=== PATIENT | female | born 1990 | race Caucasian/White ===

== ENCOUNTER → 2017-07-17 19:10 | Outpatient (CLI) | payer OTHER, SELFPAY ==
[2017-07-26 08:50] LABS: HPV APTIMA, High Risk Positive (Negative)
[2017-07-26 09:01] LABS: HPV Reflexed? YES, CHARGE PATIENT
== END ==
PROVIDERS: Visit Provider Obstetrics & Gynecology
DX: Z12.4 Encounter for screening for malignant neoplasm of cervix (principal)
CPT/HCPCS: 87624; 88175; G0145

== ENCOUNTER → 2017-08-14 11:16 | Outpatient (CLI) | payer OTHER, SELFPAY ==
--- NOTE | 2017-08-14 | IMM_PTH ---
PATIENT: KISHOR IVAN LOC: [facility] U#:[id number] AGE/SX: 34/F ROOM: RE08/14/[address]: Dr. Luci Colon MD : 1990 BED: DIS: SPEC #: [id number] RECD: 08/17/17 11:50 STATUS: CAROLINE XIOMY #: [id number] MICHAEL: 08/14/17 00:[address]: Luci Galindo DEPT: IMMUNOHISTOCHEMISTRY RECD BY: Emily Patel Tissues: Uterine cervix, NOS Procedures: p16 (initial) KI-67 (add) PHYSICIAN & INSTITUTION [place] [id number] SPECIMEN INFORMATION: Tissue Source: Cervical biopsy at 6 o?clock Clinical Info: ASCUS, positive HR/HPV, pap 07/17/17, LMP 05/30/17 Specimen Number: [id number] CPT code: 40490, 24052 METHODOLOGY: Deparaffinized sections of prefer/formalin-fixed tissue or PAP/DQ stained slides are incubated with monoclonal/polyclonal antibodies/oligonucleotide probes. Localization is made via biotin free immunoperoxidase method. Appropriate controls are performed and reacted as expected. Results on target cell population are indicated in the following table: RESULTS: ANTIBODY / CLONE RESULT P16 (E6H4) negative Ki-67 (30-9) negative These tests were developed and their performance characteristics determined by [facility]. They may not have been cleared or approved by the U.S. Food and Drug Administration. The FDA has determined that such clearance or approval is not necessary. INTERPRETATION: Cervix at 6 o?clock, biopsy: Focal changes suspicious for HPV cytopathic effects. SJ:harsh 08/18/17
--- NOTE | 2017-08-14 | CER_PTH ---
PATIENT: KISHOR IVAN [id number] AGE/SX: 34/F ROOM: RE08/14/[address]: Dr. Luci Colon MD : 1990 BED: DIS: SPEC #: [id number] RECD: 08/14/17 11:35 STATUS: CAROLINE XIOMY #: [id number] MICHAEL: 08/14/17 00:[address]: Luci Galindo DEPT: SURGICAL PATHOLOGY RECD BY: Alli Tyson Tissues: A - Uterine cervix, NOS B - Endocervical Procedures: Surgery Specimen Level IV HEADER OPERATION: Colposcopy PRE-OP DIAGNOSIS: ASCUS, positive HR/HPV, pap 07/17/17, LMP 05/30/17 TISSUE SUBMITTED: A ? Cervical biopsy 6 o?clock, B - ECC MICROSCOPIC DIAGNOSIS A. Cervix, 6 o?clock, biopsy: Focal changes suspicious for HPV cytopathic effects. Focal chronic inflammation. See comment. B. ECC: Rare minute fragment of benign ectocervical epithelium and mucous, insufficient for further evaluation. JANNETTE:harsh 08/17/17 COMMENT A. Immunohistochemistry ([id number]) for surrogate HPV marker (p16) is also being performed and results will be reported separately.. Please make reference to previous specimen ([id number]) cervix, 1 o?clock, biopsy with diagnosis of focal changes consistent with HPV cytopathic effects. MICROSCOPIC DESCRIPTION Slides are reviewed. GROSS DESCRIPTION A - Received in fixative is one container labeled with the patient's name and designated cervical biopsy 6 o'clock. The specimen consists of one irregular fragment of light vaughan soft tissue that measures 0.4 x 0.4 x 0.1 cm. The specimen is totally submitted in one cassette. B - Received in fixative is one container labeled with the patient's name and designated ECC. No obvious tissue is identified. The specimen is filtered and submitted in one cassette. / JANNETTE:harsh 08/14/17 TC:5 CPT: 68127 x2
== END ==
PROVIDERS: Visit Provider Obstetrics & Gynecology
DX: R87.610 Atypical squamous cells of undetermined significance on cytologic smear of cervix (ASC-US) (principal); R87.810 Cervical high risk human papillomavirus (HPV) DNA test positive
CPT/HCPCS: 88305; 88341; 88342

== ENCOUNTER → 2018-08-24 13:27 | Outpatient (CLI) | payer OTHER, SELFPAY ==
[2018-08-30 11:19] LABS: HPV APTIMA, High Risk Negative (Negative); HPV Reflexed? NOT INDICATED
== END ==
PROVIDERS: Visit Provider Obstetrics & Gynecology
DX: Z12.4 Encounter for screening for malignant neoplasm of cervix (principal)
CPT/HCPCS: 87624; 88175; G0145

== ENCOUNTER → 2018-09-06 | Outpatient (CLI) | payer OTHER, SELFPAY ==
[2017-05-30 13:06] VITALS: BMI 32.3
--- NOTE | 2018-09-06 08:45 | CER_PTH ---
PATIENT: KISHOR IVAN [id number] AGE/SX: 28/F ROOM: RE09/06/[address]: Dr. Luci Colon MD : 1990 BED: DIS: 09/06/2018 SPEC #: [id number] RECD: 09/06/18 10:47 STATUS: CAROLINE XIOMY #: [id number] MICHAEL: 09/06/18 08:[address]: Luci Galindo DEPT: SURGICAL PATHOLOGY RECD BY: Juwan Robert Tissues: A - Uterine cervix, NOS B - Endocervical Procedures: Surgery Specimen Level IV HEADER OPERATION: Colposcopy PRE-OP DIAGNOSIS: ASCUS, positive HPV, LMP 08/06/18, pap 08/24/18 TISSUE SUBMITTED: A - Cervical biopsy 6 o'clock, B - ECC MICROSCOPIC DIAGNOSIS A. Cervix, 6 o'clock, biopsy: Moderate chronic inflammation and focal mild acute inflammation. Negative for dysplasia. See comment. B. ECC: Fragments of benign endocervical epithelium, blood and mucous, negative for dysplasia. Scant fragment of benign endometrial tissue, consistent with lower uterine segment endometrial tissue. SJ:rg 09/07/18 COMMENT A. Transitional zone mucosa is present in the submitted specimen. Please make reference to previous specimen ([id number]) cervix, 1 o'clock, biopsy with diagnosis of focal changes consistent with HPV cytopathic effects and ([id number]) cervix, 6 o'clock, biopsy with diagnosis of focal changes suspicious for HPV cytopathic effects. MICROSCOPIC DESCRIPTION Slides are reviewed. GROSS DESCRIPTION A - Received in fixative is one container labeled with the patient's name and designated cervical biopsy 6 o'clock. The specimen consists of multiple irregular fragments of light vaughan soft tissue that in aggregate measure 0.5 x 0.5 x 0.1 cm. The specimen is totally submitted in one cassette. B - Received in fixative is one container labeled with the patient's name and designated ECC. The specimen consists of multiple fragments of hemorrhagic mucoid tissue that in aggregate measure 1 x 1 x 0.1 cm. The specimen is totally submitted in one cassette. / JANNETTE:harsh 09/06/18 TC:3 CPT: 96330 x2
== END | disposition home or self-care (01) ==
LOC: LABSPEC 10:56
PROVIDERS: Referring Provider Obstetrics & Gynecology; Visit Provider Obstetrics & Gynecology
DX: R87.610 Atypical squamous cells of undetermined significance on cytologic smear of cervix (ASC-US) (principal)
CPT/HCPCS: 88305

== ENCOUNTER → 2018-11-02 10:13 | Outpatient (CLI) | payer OTHER, SELFPAY ==
[2018-11-02 12:34] LABS: Chlamydia Trachomatis by PCR Negative (Negative); Neisserai gonorrhoeae by PCR Negative (Negative); Probe Check PASS; Sample Adequacy Control PASS; Specimen Processing Control PASS
== END ==
PROVIDERS: Visit Provider Obstetrics & Gynecology
DX: Z32.01 Encounter for pregnancy test, result positive (principal); Z11.3 Encounter for screening for infections with a predominantly sexual mode of transmission
CPT/HCPCS: 87491; 87591

== ENCOUNTER → 2018-11-16 | Outpatient (CLI) | payer OTHER, SELFPAY ==
[2018-11-16 11:12] LABS: Absolute Lymphocyte Count 1.51 X10^3/ul (0.83-4.51); Absolute Neutrophil Count 4.1 X10^3/uL (2.0-7.7); Basophil# 0.01 X10^3/uL; Basophil% 0.2 % (0-1); Color, Urine Yellow (Yellow); Eosinophil# 0.04 X10^3/uL; Eosinophils% 0.7 % (0-5); Glucose, Dipstick Normal (Normal); Hematocrit 37.5 % (37-47); Hemoglobin 12.8 g/dl (12.0-15.0); Ketone-Dipstick Negative (Negative); Leukocyte Esterase-Dipstick Negative /ul (Negative); Lymphocyte # 1.51 X10^3/ul (4.0); Lymphocyte % 24.9 % (19-41); Mean Corp Hgb Conc 34.1 g/gl (32-36); Mean Corpuscular Hgb 28.4 pg (27.0-32.0); Mean Corpuscular Volume 83.3 fL (81-99); Mean Platelet Vol. 10.3 fl (6.2-12.0); Monocyte# 0.43 X10^3/uL; Monocyte% 7.1 % (0-10); Neutrophil # 4.06 X10^3/uL (2.7-7.7); Neutrophil % 66.9 % (47-70); Nitrite-Dipstick Negative (Negative); Occult Blood-Urine 10 /ul (Negative); Platelet Count 281 K/mm3 (150-450); Protein-Dipstick 15 mg/dl (Negative); RBC Distribution Width CV 13.1 % (11.6-14.6); RBC Distribution Width SD 39.6 fl (35.1-43.9); Specific Gravity, Urine 1.025 (1.002-1.030); Urine Bilirubin Dipstick Negative (Negative); Urine Clarity Clear (Clear); Urine Urobilinogen 1 mg/dl (Normal); White Blood Count 6.1 K/mm3 (4.4-11.0)
[2018-11-16 11:13] LABS: POSITIVE COUNT NO; POSITIVE DIFFERENTIAL NO; POSITIVE MORPHOLOGY NO
[2018-11-16 11:25] LABS: Amphetamine Urine VISTA NEGATIVE (<1000 ng/mL); Barbiturate Urine VISTA NEGATIVE (< 200 ng/mL); Benzodiazepine Urine VISTA NEGATIVE (< 200 ng/mL); Cocaine Urine VISTA NEGATIVE (< 300 ng/mL); Ecstacy Urine VISTA NEGATIVE (< 500 ng/mL); Methadone Urine VISTA NEGATIVE (< 300 ng/mL); PCP Urine VISTA NEGATIVE (< 25 ng/mL); THC Urine VISTA NEGATIVE (< 50 ng/mL); Vista UDS pH Range 5
[2018-11-16 11:31] LABS: Thyroid Stim Hormone (TSH) 0.77 uIU/mL (0.358-3.74)
[2018-11-16 12:09] LABS: HIV - WCH Non-Reactive (Nonreactive); Rubella IgG 86.2 IU/mL
[2018-11-17 11:19] LABS: HEPATITIS B SURFACE AG Negative (Negative); Hep C Antibodies <0.1 s/co ratio (0.0-0.9)
[2018-11-19 02:31] LABS: Prenatal RPR NONREACTIVE (NONREACTIVE)
== END | disposition home or self-care (01) ==
LOC: WOBLAB 09:04
PROVIDERS: Visit Provider Obstetrics & Gynecology
DX: Z34.83 Encounter for supervision of other normal pregnancy, third trimester (principal)
CPT/HCPCS: 36415; 80307; 81002; 84443; 85025; 86703; 86762; 86803; 87340

== ENCOUNTER → 2019-03-28 09:09 | Outpatient (CLI) | payer OTHER, SELFPAY ==
[2019-03-28 11:07] LABS: Hematocrit 32.9 % (37-47); Mean Corp Hgb Conc 33.4 g/dL (32-36); Mean Corpuscular Hgb 29.1 pg (27.0-32.0); Mean Platelet Vol. 10.2 fl (6.2-12.0); Platelet Count 259 K/mm3 (150-450); RBC Distribution Width SD 41.1 fl (35.1-43.9); Red Blood Count 3.78 M/mm3 (4.2-5.4); White Blood Count 5.4 K/mm3 (4.4-11.0)
[2019-03-28 11:11] LABS: Glucose Challenge Gest 1H 50g 108 mg/dL (70-140)
== END ==
PROVIDERS: Visit Provider Obstetrics & Gynecology
DX: Z34.83 Encounter for supervision of other normal pregnancy, third trimester (principal)
CPT/HCPCS: 36415; 82950; 85027

== ENCOUNTER → 2019-05-27 14:01 | Outpatient (CLI) | payer OTHER, SELFPAY | PROVIDERS: Visit Provider Obstetrics & Gynecology | DX: Z36.85 Encounter for antenatal screening for Streptococcus B (principal) | CPT/HCPCS: 87081 ==

== ENCOUNTER 2019-06-04 18:00 | Outpatient (CLI) | payer OTHER, SELFPAY ==
[2017-05-30 13:06] VITALS: BMI 32.3
[2019-06-04 18:18] VITALS: BMI 30.9
[2019-06-04] MEDS: Ondansetron 8 MG Tablet 4 MG PO (19:40)
[2019-06-04 19:48] LABS: Color, Urine Yellow (Yellow); Glucose, Dipstick Normal (Normal); Leukocyte Esterase-Dipstick Negative /ul (Negative); Nitrite-Dipstick Negative (Negative); Occult Blood-Urine Negative /ul (Negative); Protein-Dipstick Negative (Negative); Specific Gravity, Urine 1.015 (1.002-1.030); Urine Bilirubin Dipstick Negative (Negative); Urine Clarity Clear (Clear); Urine Urobilinogen Normal (Normal)
[2019-06-04 19:51] LABS: Ketone-Dipstick 150 mg/dl (Negative)
[2019-06-04] MEDS: 0.9% Saline Lock 10 ML Syringe IV ×4 (21:50→22:47)
--- NOTE | 2019-06-04 21:51 | OB.TRI.HP_ITS ---
- Problem List (1) 38 weeks gestation of Status: Acute History of Present Illness Date of Service: 06/04/19 Was patient seen by the physician?: Yes Reason For Visit: R/O LABOR Final HOWARD: 06/18/19 Final HOWARD Source: US <20 weeks Gestational age: 38 Weeks and 0 Days History of Present Illness: 28yo @ 38wga with c/o contractions since 1400h. Allergies No Known Allergies Allergy (Verified 06/04/19 18:19) Laboratory Studies: Laboratory Tests 06/04/19 Range/Units 19:20 Urine Color Yellow (Yellow) Urine Clarity Clear (Clear) Urine pH 7.0 (5.0 - 8.0) Ur Specific [place] 1.015 (1.002-1.030) Urine Protein Negative (Negative) mg/dl Urine Glucose (UA) Normal (Normal) mg/dl Urine Ketones 150 H (Negative) mg/dl Urine Occult Blood Negative (Negative) /ul Urine Nitrite Negative (Negative) Urine Bilirubin Negative (Negative) mg/dL Urine Urobilinogen Normal (Normal) mg/dl Ur Leukocyte Esterase Negative (Negative) /ul Physical Exam General: Alert, Oriented x3, Cooperative Abdomen: Non Tender, Non-Distended, Gravid Extremities:: No edema NST - FHR Rate Baby A Baseline: 145 Variability:: Moderate Accelerations:: 15 x 15 Decelerations:: None NST Reactive:: Yes FHR Category:: Category I Uterine Activity:: 3/10 min Impression/Plan 28yo @ 38wga -SVE unchanged, hx precipitous labor -Will observe for therapeutic rest
[2019-06-04] MEDS: proMETHazine 25 MG/ML Syringe 12.5 MG IV (22:15)
[2019-06-04 22:17] LABS: Absolute Lymphocyte Count 1.12 X10^3/uL (0.83-4.51); Absolute Neutrophil Count 8.1 X10^3/uL (2.0-7.7); Basophil# 0.01 X10^3/uL; Basophil% 0.1 % (0-1); Eosinophil# 0.01 X10^3/uL; Eosinophils% 0.1 % (0-5); Hematocrit 33.8 % (37-47); Hemoglobin 11.5 g/dL (12.0-15.0); Lymphocyte # 1.12 X10^3/ul (4.0); Lymphocyte % 11.4 % (19-41); Mean Corpuscular Hgb 28.3 pg (27.0-32.0); Mean Platelet Vol. 10.2 fl (6.2-12.0); Monocyte# 0.57 X10^3/uL; Monocyte% 5.8 % (0-10); NRBC Flagged by Analyzer 0 % (0-5); Neutrophil # 8.08 X10^3/uL (2.7-7.7); Neutrophil % 82.2 % (47-70); Platelet Count 215 K/mm3 (150-450); RBC Distribution Width CV 13.8 % (11.6-14.6); RBC Distribution Width SD 41.8 fl (35.1-43.9); Red Blood Count 4.07 M/mm3 (4.2-5.4); White Blood Count 9.8 K/mm3 (4.4-11.0)
[2019-06-04] MEDS: Morphine 4 MG/ML Syringe IV (22:46)
[2019-06-04] MEDS: morphine 10 MG/ML Syringe IM (22:54)
--- NOTE | 2019-06-05 06:30 | PCM.PN.BLA ---
Progress Note Per nursing, pt reported she feels better and had a restful night. No longer feels most contractions. SVE unchanged. Will d/c home.
== END 2019-06-05 06:20 | disposition home or self-care (01) ==
LOC: WPOUT 18:05 → WP 18:06
PROVIDERS: Referring Provider Obstetrics & Gynecology; Visit Provider Obstetrics & Gynecology
DX: Z34.83 Encounter for supervision of other normal pregnancy, third trimester (principal); Z3A.38 38 weeks gestation of pregnancy
CPT/HCPCS: 36415; 59025; 59050; 81002; 85025; 86850; 86900; 86901; 94760; 96372; 99218; A4216; G0378

== ENCOUNTER 2019-06-18 02:35 | Inpatient (IN) | payer OTHER, SELFPAY ==
[2019-06-18] MEDS: Lactated Ringers 500 ML 999 ML IV ×2 (03:30→04:11)
[2019-06-18] MEDS: Lactated Ringers 1,000 ML 200 ML IV (03:30)
[2019-06-18 03:34] VITALS: BMI 31.0
[2019-06-18 03:48] LABS: Absolute Lymphocyte Count 1.42 X10^3/uL (0.83-4.51); Absolute Neutrophil Count 8.4 X10^3/uL (2.0-7.7); Basophil# 0.01 X10^3/uL; Basophil% 0.1 % (0-1); Eosinophil# 0.03 X10^3/uL; Eosinophils% 0.3 % (0-5); Hematocrit 35.2 % (37-47); Hemoglobin 11.8 g/dL (12.0-15.0); Lymphocyte # 1.42 X10^3/ul (4.0); Lymphocyte % 13.4 % (19-41); Mean Corp Hgb Conc 33.5 g/dL (32-36); Mean Corpuscular Hgb 28.2 pg (27.0-32.0); Mean Platelet Vol. 10.5 fl (6.2-12.0); Monocyte% 6.6 % (0-10); NRBC Flagged by Analyzer 0 % (0-5); Neutrophil # 8.36 X10^3/uL (2.7-7.7); Platelet Count 244 K/mm3 (150-450); RBC Distribution Width CV 13.7 % (11.6-14.6); RBC Distribution Width SD 41.9 fl (35.1-43.9); Red Blood Count 4.19 M/mm3 (4.2-5.4); White Blood Count 10.6 K/mm3 (4.4-11.0)
[2019-06-18] MEDS: Ondansetron 4 MG/2 ML Vial IV (04:06)
--- NOTE | 2019-06-18 04:39 | HP.PCM_ITS ---
- Problem List (1) 40 weeks gestation of Status: Acute History Date of Admission: 06/18/19 Final HOWARD: 06/18/19 Final HOWARD Source: US <20 weeks Gestational age: 40 Weeks and 0 Days History of this : This is a 28 year-old, G [], P [], at 40 weeks gestational age. Allergies No Known Allergies Allergy (Verified 06/18/19 03:37) Home Medications: Home Medications Calcium Carbonate [Tums] 200 mg PO PRN PRN 06/04/19 Pnv No.95/Ferrous Fum/Folic AC [ Caplet] 1 ea PO DAILY 06/04/19 Smoking Status: Never smoker Alcohol: None Number of Fetus(es): 1 NST - FHR Rate Baby A Baseline: 125 Variability:: Moderate Accelerations:: 15 x 15 Decelerations:: None NST Reactive:: Yes FHR Category:: Category I Uterine Activity:: Q 2-5 min History Past Pregnancies: Past Pregnancies Delivery Date Name GA/ Weeks Outcome Route Wt Infant Sex Labor Length Anesthesia Delivery Location Provider FOB 02/13 37 viable vag 6.11 M 10 Epidural [facility] 05/17 40 viable vag 7.2 M 8 Epidural [facility] Labs: Mom's Labs & Results 06/18/19 06/18/19 03:30 03:30 WBC 10.6 RBC 4.19 L Hgb 11.8 L Hct 35.2 L MCV 84.0 MCH 28.2 MCHC 33.5 RDW Std Deviation 41.9 RDW Coeff of Norma 13.7 Plt Count 244 MPV 10.5 Immature Gran % (Auto) 0.600 Neut % (Auto) 79.0 H Lymph % (Auto) 13.4 L [place] % (Auto) 6.6 Eos % (Auto) 0.3 Baso % (Auto) 0.1 Absolute Neuts (auto) 8.4 H Absolute Lymphs (auto) 1.42 Nucleated RBC % 0 Blood Type A POSITIVE Antibody Screen NEGATIVE Course Did the patient receive Yes care? Labs Blood Type: A RH: POSITIVE RPR/VDRL/Syphilis Nonreactive Rubella status Immune HbSAg Negative Date Done: 11/16/18 Chlamydia Negative Gonorrhea Negative HIV/AIDS Non-Reactive Group B Strep: Negative Current Obstetrical History Gestational Diabetes No Incompetent Cervix No Infertility No IUGR No Macrosomia No Hypertension/Pre-eclampsia No Placenta Previa/Abruption No PTL/PROM Yes: 37 week delivery with first child Uterine anomaly No Oligohydramnios No Polyhydramnios No Multiple gestation No Past Medical History Asthma No Diabetes No Hypertension No Heart disease No Mitral valve prolapse No Neurologic/Seizure disorder/ No Migraines Kidney disease No Liver disease No Varicosities No Clotting disorders/Hx of DVT No Thyroid Dysfunction No Other medical diseases No Psychiatric disorders No Major trauma No Abnormal PAP smear Yes Sleep apnea No Mammogram in the last 2 years No Social History Marital Status: Alleged father Braden Abshear Hx Smoking No Smoking Status Never smoker Expected Infant Delivery Method: Spontaneous Vaginal Number of Visits: 13 Review of Systems Constitutional: Denies: Chills, Fever, Weight Change HEENT: Denies: Head Aches, Sinus Congestion, Sinus Drainage Cardiovascular: Denies: Chest Pain, Palpitations Respiratory: Denies: Cough, Shortness of breath at rest, Sputum production Gastrointestinal: Denies: Abdominal Pain, Nausea, Vomiting Genitourinary: Denies: Dysuria Musculoskeletal: Denies: Joint Pain, Joint Tenderness Skin: Denies: Rash, Wounds Neurological: Denies: Numbness, Tingling, Focal weakness Psychiatric: Denies: Anxiety, Depression, Homicidal Ideations, Suicidal Ideations Hematologic/ Lymphatic: Denies: Easy Bruising, Easy Bleeding Physical Exam General: Alert, Oriented x3, No apparent distress HEENT: Atraumatic, Normocephalic. Negative for: Thyromegaly, Lymphadenopathy Cardiovascular: Regular rate, Regular Rhythm Lungs: Clear to auscultation Abdomen: Bowel Sounds Present, Gravid Neurological: Deep Tendon Reflexes 2+/4 and Symmetrical, Neuro grossly intact DENTAL CHAIRSIDE ASSISTANT: Normal external genitalia. Negative for: Vulvar lesions Estimated gestational size: Appropriate for gestational size Presentation: Cephalic Cervix Dilation (cm): 5 Station: -2 Effacement (%): 50 Assessment/Plan All Active Problems 38 weeks gestation of (Acute) 40 weeks gestation of (Acute) A: This is a 28 year-old, G [3], P [2], at 40 weeks gestational age. 40 weeks gestation SVE 5/50/-2 per RN FHR baseline 125, +accels, -decels, moderate variability, reactive Category I UC 2-5min Active labor P: Admit for labor Plans epidural for pain management Wishes AROM after epidural Expect
[2019-06-18] MEDS: fentaNYL-bupivacaine (epidural) 100 ML BAG EPIDURAL (05:23)
--- NOTE | 2019-06-18 05:57 | PCM.PN.BLA ---
Progress Note S: Feeling well and relaxed now O: Sitting in bed, with epidural in place. at bedside SVE /0 with bulging bag of fluid A: Active labor Epidural for pain management P: AROM-clear fluid noted Expect
[2019-06-18] MEDS: Oxytocin 30 units/NS 500 ml 30 UNITS/500 ML IV.SOLN 334 UNITS IV (08:44)
--- NOTE | 2019-06-18 09:03 | PCM.OPRPT ---
Problem List (1) 40 weeks gestation of Status: Inactive (2) Normal vaginal delivery Status: Acute Vaginal Delivery Maternal Presentation: Active Labor Amniotic Membrane Rupture Type: Artificial Rupture of Membrane time: 0500 Amniotic Fluid Description: Clear Final HOWARD: 06/18/19 Final HOWARD Source: US <20 weeks Gestational age: 40 Weeks and 0 Days Date of Procedure: 06/18/19 Pre-Operative Diagnosis: 40 weeks gestation Post-Operative Diagnosis: S/P Surgery/ Procedure Performed: Spontaneous Vaginal Delivery Type of Anesthesia: Epidural Description of Procedure: Called to patients room when she was ant lip/90/-1 station. Incredible pressure with urge to push. Started pushing with instant retraction of anterior cervical lip. Pushed well. Applied perineal support with mineral oil with of head. Loose nuchal x1 manually removed. Delivered shoulders, followed immediately by body. Viable male with apgars 9/10. Delayed cord clamping for 5 minutes until pulsating ceased. Clamped by CNM and cut by FOB with direction. Pitocin IV started per protocol. Placenta delivered spontaneously with gentle traction in Nascimento mechanism, intact with 3 vessel cord. First degree laceration to right vaginal floor. Repaired with a 3.0 rapide. EBL 200. All counts correct x 2 with RN. Presentation: Vertex, EULALIO Placental Delivery Description: Spontaneous Placenta Disposition: [facility] Cord Vessel Description: 3 Vessels Cord Entanglement: Around neck x 1, loose Estimated Blood Loss: 200 A gender: Male (1 minute): 9 (5 minute): 10 Episiotomy Description: None Laceration: Vaginal Extension/lac, 1st degree Medications given after delivery: IV Pitocin
--- NOTE | 2019-06-18 09:12 | DCINST_ITS ---
Discharge Diet: No Restrictions Discharge Activity: Return to Normal Activity, May not drive while taking narcotic pain medications., May Shower May resume sexual activity in: - - One week after bleeding has stopped and laceration has healed. Call your doctor if your incision/area has: Continuous Slow Oozing, Sudden Increased Bleeding, Increased Pain/ Swelling, Increased Redness, Foul Smelling Discharge Additional Instructions: If you experience any of the following, contact your healthcare provider. * Bleeding that soaks a pad every hour for 2 hours * Fever 100.4 or higher * Unrelieved incision or abdominal pain * Swelling, redness, discharge or bleeding from your incision or episiotomy site * Your incision begins to separate * Problems urinating (including inability to urinate or burning while urinating). * Visual changes * Severe headache * Flu-like symptoms * Pain or redness in one of both of your breasts * Pain, warmth, tenderness or swelling in your legs, especially the calf area * Frequent nausea and vomiting * Symptoms of depression or anxiety If you experience any of the following, call 911 or go to the nearest Emergency Room. * Chest pain * Problems breathing * Seizure activity * Partial or complete paralysis of a body part, slurred speech, weakness or drooping of the face, or a sudden inability to walk or hold your balance Allergies/Adverse Reactions: Allergies No Known Allergies Allergy (Verified 06/18/19 03:37) Medications to take at Discharge Calcium Carbonate [Tums] 200 mg PO PRN PRN 06/04/19 Pnv No.95/Ferrous Fum/Folic AC [ Caplet] 1 ea PO DAILY 06/04/19 Please Follow Up With: Mayelin Correa CNM When: Call to make an appointment with your doctor in 6 weeks. If you have signs of depression please call [facility]. Primary Care Physician: Care Physician,No Primary [Primary Care Provider] - Test Results: Test results from this visit will be discussed in further detail at your follow- up appointment, if applicable. Proposed Discharge Date: 06/20/19
[2019-06-18] MEDS: Ibuprofen 600 MG Tablet PO ×2 (13:25→21:08)
[2019-06-18 14:45] VITALS: BP 112/69; PULSE 93; RESP 12; TEMP 37.6
[2019-06-18 20:55] VITALS: BP 121/70; PULSE 82; RESP 16; TEMP 36.6; O2SAT 99
[2019-06-18 22:50] VITALS: BP 98/61; PULSE 67; RESP 18; TEMP 36.5; O2SAT 98
[2019-06-19 04:15] VITALS: BP 111/50; PULSE 92; RESP 16; TEMP 36.5; O2SAT 99
[2019-06-19 05:32] LABS: Hematocrit 31.2 % (37-47); Hemoglobin 10.4 g/dL (12.0-15.0); Mean Corp Hgb Conc 33.3 g/dL (32-36); Mean Corpuscular Hgb 28.2 pg (27.0-32.0); Mean Corpuscular Volume 84.6 fL (81-99); Mean Platelet Vol. 10.3 fl (6.2-12.0); Platelet Count 205 K/mm3 (150-450); RBC Distribution Width CV 14.4 % (11.6-14.6); RBC Distribution Width SD 43.8 fl (35.1-43.9); Red Blood Count 3.69 M/mm3 (4.2-5.4); White Blood Count 9.6 K/mm3 (4.4-11.0)
[2019-06-19 08:27] VITALS: BP 121/61; PULSE 73; RESP 16; TEMP 36.1; O2SAT 99
[2019-06-19] MEDS: Ibuprofen 600 MG Tablet PO (08:40)
--- NOTE | 2019-06-19 09:46 | PCM.DC.SUM ---
Discharge Date and Diagnosis - Problem List Patient Problems: Active and Suspected Problems Normal vaginal delivery (Acute) Date of Admission: 06/18/19 Date of Discharge: 06/19/19 - Primary Discharge Diagnosis Active and Suspected Problems Normal vaginal delivery (Acute) Hospital Course and Treatment Operations: None Summary of Care Provided: The patient is a 28 year old F [] Patient Problems: Active and Suspected Problems Normal vaginal delivery (Acute) Subjective: Only pain is with and cramps start, Motrin helping. No vaginal pain. Passing flatus. No questions or concerns. Easiest she has had and she liked the quiet, calm atmosphere. Objective: VSS. Hg stable at 10.4. Encouraged iron rich foods. infant male well. Fundus u/1, firm, midline. Scant lochia rubra. Educated on increase in bleeding once home and encouraged to rest. plans vasectomy in one month for control. Would like to discharge today. - Physical Exam Vitals/I&O's: Vital Signs Temp Pulse Resp BP Pulse Ox 97.0 F L 73 16 121/61 H 99 06/19/19 08:27 06/19/19 08:27 06/19/19 08:27 06/19/19 08:27 06/19/19 08:27 Oxygen Delivery Method Room Air Weight: 82.1 kg Body Mass Index (BMI) 31.0 Intake and Output for Last 24 Hours 06/17/19 06/18/19 06/19/19 23:59 23:59 23:59 Intake Total 2689.77 / 2689.77 Output Total 600 / 600 Balance 2089.77 / 2089.77 General: Alert, Oriented x3, Cooperative HEENT: Atraumatic, PERRLA, EOMI, Normocephalic Neck: Supple, No JVD, Negative Carotid Bruits Lungs: Clear to auscultation, Normal air movement Cardiovascular: Regular rate, No murmurs Abdomen: Bowel Sounds Present, Soft, Non Tender, Passing Flatus, - - fundus u/1 Extremities: No edema, Capillary Refill Less than 3 Seconds Skin: No rashes, No breakdown Musculoskeletal: No Tenderness to Palpation of Joints or Extremities Neurological: Cranial nerves II-XII grossly intact Psych/Mental Status: Normal Affect, Appropriate Laboratory Results 06/19/19 05:20: WBC 9.6, RBC 3.69 L, Hgb 10.4 L, Hct 31.2 L, MCV 84.6, MCH 28.2, MCHC 33.3, RDW Std Deviation 43.8, RDW Coeff of Norma 14.4, Plt Count 205, MPV 10.3 Current Medications Acetaminophen (Tylenol) 1,000 mg PO Q8H PRN PRN PRN Reason: Pain Score 1-3/10 Bisacodyl (Dulcolax) 10 mg RECTAL UD PRN PRN Reason: If no BM Dibucaine (Dibucaine) 1 applic TOPICAL TID PRN PRN; Protocol PRN Reason: Discomfort Hydrocortisone (Hytone) 1 applic TOPICAL TID PRN PRN; Protocol PRN Reason: Discomfort Ibuprofen (Motrin) 600 mg PO Q6H PRN PRN PRN Reason: Pain Score 1-3/10 Last Admin: 06/19/19 08:40 Dose: 600 mg Documented by: Methylergonovine Maleate (Methergine) 0.2 mg IM X1 PRN PRN Reason: Excess bleeding/uterine atony Ondansetron HCl (Zofran) 4 mg IV Q4H PRN PRN PRN Reason: Nausea Oxycodone HCl (Oxyir) 5 - 10 mg PO Q4H PRN PRN PRN Reason: Pain Score 4-10/10 Senna/Docusate Sodium (Senokot-S, Maryan-Colace) 1 - 2 tablet PO DAILY PRN PRN PRN Reason: Constipation Simethicone (Mylicon) 80 mg PO PCHS PRN PRN Reason: Indigestion/Stomach pain Sodium Chloride () 5 - 15 ml IV UD PRN PRN Reason: SALINE FLUSH Discharge Diet: No Restrictions Discharge Activity: Return to Normal Activity, May not drive while taking narcotic pain medications., May Shower May resume sexual activity in: - - One week after bleeding has stopped and laceration has healed. Call your doctor if your incision/area has: Continuous Slow Oozing, Sudden Increased Bleeding, Increased Pain/ Swelling, Increased Redness, Foul Smelling Discharge Home Medications: Medications to take at Discharge Calcium Carbonate [Tums] 200 mg PO PRN PRN 06/04/19 Pnv No.95/Ferrous Fum/Folic AC [ Caplet] 1 ea PO DAILY 06/04/19 Primary Care Physician: Care Physician,No Primary [Primary Care Provider] - Please Follow Up With: Mayelin Correa CNM Patient Instructions: Nutrition While , at Home, After a Vaginal , Understanding Depression Medical Necessity - Tobacco Use Smoking Status: Never smoker Meaningful Use Info Meaningful Use Diagnoses (Choose all that apply): None applicable
[2019-06-19 12:53] VITALS: BP 127/79; PULSE 74; RESP 16; TEMP 36.1; O2SAT 99
== END 2019-06-19 13:00 | disposition home or self-care (01) | DRG 807 ==
PROVIDERS: Admitting Provider Obstetrics & Gynecology; Referring Provider Obstetrics & Gynecology; Visit Provider Obstetrics & Gynecology
DX: O70.0 First degree perineal laceration during delivery (principal); Z37.0 Single live birth; O69.81X0 Labor and delivery complicated by cord around neck, without compression, not applicable or unspecified; Z3A.40 40 weeks gestation of pregnancy
CPT/HCPCS: 59025; 59050; 85025; 85027; 86850; 86900; 86901; 99218; J7120; G0378; J2405; J3490

== ENCOUNTER → 2019-08-03 | Outpatient (CLI) | payer OTHER, SELFPAY ==
[2019-08-05 04:45] LABS: HPV APTIMA, High Risk Negative (Negative)
== END | disposition home or self-care (01) ==
LOC: LABSPEC 13:30
PROVIDERS: Visit Provider Obstetrics & Gynecology
DX: Z12.4 Encounter for screening for malignant neoplasm of cervix (principal)
CPT/HCPCS: 87624; 88175; G0145

== ENCOUNTER 2019-09-08 10:37 | Day surgery (SDC) | payer OTHER, SELFPAY ==
[2019-09-08] VITALS (9 sets, daily range): BP systolic 101–120; BP diastolic 65–81; PULSE 59–75; RESP 12–16; TEMP 36.3–36.6; O2SAT 98–100; BMI 28.6
[2019-09-08 11:14] LABS: Internal QC Validated? YES +Cl - CLEAR BKGD; Pregnancy, Urine Negative Negative
[2019-09-08] MEDS: Lactated Ringers 1,000 ML 100 ML IV ×2 (11:16→13:54)
[2019-09-08] MEDS: Cefazolin 2 GM in 0.9% Normal Saline 100 ML IV (11:42)
--- NOTE | 2019-09-08 12:46 | PCM.HP.STD ---
Problem List (1) Obstructing left ureteral calculi Status: Acute History of Present Illness Date of Admission: 09/08/19 Chief Complaint: Obstructing left ureteral calculi The patient is a 29 year old female who presents with a 7 mm stone in the mid left ureter she now presents the hospital for ureteroscopy and laser lithotripsy of obstructing stone. Past Medical History Allergies No Known Allergies Allergy (Verified 09/06/19 15:58) Home Medications: Ambulatory Orders Medication Instructions Recorded Pnv No.95/Ferrous Fum/Folic AC 1 ea PO DAILY 06/04/19 [ Caplet] Surgical History: no surgical history Smoking Status: Never smoker Tobacco Use: Non-smoker Review of Systems Constitutional: Denies: Chills, Fever, Weight Change HEENT: Denies: Head Aches, Sinus Congestion, Sinus Drainage Cardiovascular: Denies: Chest Pain, Palpitations Respiratory: Denies: Cough, Shortness of breath at rest, Sputum production Gastrointestinal: Denies: Abdominal Pain, Nausea, Vomiting Genitourinary: Denies: Dysuria Musculoskeletal: Denies: Joint Pain, Joint Tenderness Skin: Denies: Rash, Wounds Neurological: Denies: Numbness, Tingling, Focal weakness Psychiatric: Denies: Anxiety, Depression, Homicidal Ideations, Suicidal Ideations Hematologic/ Lymphatic: Denies: Easy Bruising, Easy Bleeding VTE Information - Inpt Only VTE Present on Admission: No VTE Mechan Device Prophylaxis: SCD's Patient Problems: Active and Suspected Problems Obstructing left ureteral calculi (Acute) - Physical Exam Vitals/I&O's: Vital Signs Temp Pulse Resp BP Pulse Ox 97.4 F L 75 14 119/81 H 99 09/08/19 10:55 09/08/19 10:55 09/08/19 10:55 09/08/19 10:55 09/08/19 10:55 Oxygen Delivery Method Room Air Weight: 75.75 kg Body Mass Index (BMI) 28.6 General: Alert, Oriented x3, Cooperative HEENT: Atraumatic, PERRLA, EOMI, Normocephalic Neck: Supple, No JVD, Negative Carotid Bruits Lungs: Clear to auscultation, Normal air movement Cardiovascular: Regular rate, No murmurs Abdomen: Bowel Sounds Present, Soft, Non Tender Extremities: No edema, Capillary Refill Less than 3 Seconds Skin: No rashes, No breakdown Musculoskeletal: No Tenderness to Palpation of Joints or Extremities Neurological: Cranial nerves II-XII grossly intact Psych/Mental Status: Normal Affect, Appropriate Laboratory Results 09/08/19 10:52: Urine Test Negative Current Medications Lactated Ringer's () 1,000 mls @ 100 mls/hr IV .Q10H KEVIN Last Admin: 09/08/19 11:16 Dose: 100 mls/hr Documented by: Assessment/Plan All Active Problems 38 weeks gestation of (Acute) Normal vaginal delivery (Acute) Obstructing left ureteral calculi (Acute) Plan to proceed with laser lithotripsy of obstructing stone and stent placement to left side. Essential Procedure Criteria Procedure Essential: Yes Criteria Note: On 08/16/2019 the [facility] Health ([facility]) Public Order signed by [facility] Director Jessica Ann M.D., regarding the Management of Non-Essential Surgeries and Procedures for the purpose of preserving Personal Protective Equipment (PPE) and critical hospital capacity and resources within [place] went into effect as of 08/17/2019 at 5:00PM. According to the [facility] Public Order: This action will remain in full force and effect until the State of Emergency declared by the Governor no longer exists or the Director of the [facility] rescinds or modifies this Order.. This [facility] order stated all non-essential or elective surgeries and procedures that utilize PPE should be delayed unless there is undue risk to the current or future health of a patient. After reviewing the aforementioned [facility] Public Order and the patients clinical case, I have determined that the scheduled procedure meets the criteria to go forward. Risk to Patient if Procedure Delayed: Risk of rapidly worsening to severe symptoms
--- NOTE | 2019-09-08 12:48 | DCINST_ITS ---
Discharge Diet: No Restrictions, Light diet - advance as tolerated Discharge Activity: Return to Normal Activity, May Not Drive - for 2 days., May not drive while taking narcotic pain medications. Additional Activity Instructions:: Please be aware that pain medications may cause nausea. You should typically eat light foods as you take your pain medication. Pain medication may cause constipation, if this is a problem for you, please discuss with your doctor. Allergies/Adverse Reactions: Allergies No Known Allergies Allergy (Verified 09/06/19 15:58) Medications to take at Discharge Pnv No.95/Ferrous Fum/Folic AC [ Caplet] 1 ea PO DAILY 06/04/19 Primary Care Physician: Care Physician,No Primary [Primary Care Provider] - Test Results: Test results from this visit will be discussed in further detail at your follow- up appointment, if applicable. Please Follow Up With: Esequiel Gamble MD When: please call to make an appointment.
--- NOTE | 2019-09-08 13:13 | PCM.OPRPT ---
Problem List (1) Obstructing left ureteral calculi Status: Acute Report of Operation Date of Procedure: 09/08/19 Pre-Operative Diagnosis: Left obstructing ureteral calculi Post-Operative Diagnosis: The same Surgery/Procedure Performed:: Cystoscopy, left retrograde pyelogram, interpretation of fluoroscopic images, ureteroscopy laser lithotripsy of stone. Balloon dilation of the left ureter. Left stent placement. Description of Surgical Findings:: Patient presented to the hospital for treatment of a calculus 7 millimeters in size in the mid left ureter. We discussed how the procedure is done what to expect afterwards he probably will need a stent. We discussed the discomfort that the stent would cause, burning with urination, frequency, urgency, pain in the kidney, blood in the urine. We also discussed the risk of the procedure including bleeding and infection and the risk of anesthesia. We discussed the very rare risk of injury or scar tissue development in the ureter after this procedure. We also discussed the possibility that the stone would not be able to be treated completely and the patient may need multiple procedures. After discussion with the patient in the preoperative area also I saw the patient in the office discussing the same outcomes the patient signed the consent form, and all the patient's questions were answered. The patient was taken back to the operating room after smooth induction of general anesthesia and the patient was placed supine on the table. We then repositioned the patient in dorsolithotomy position with the legs in stirrups. We made sure all the patient's pressure points were padded. The patient had SCDs on for DVT prophylaxis and was loaded with IV antibiotics prior to the procedure. Imaging was reviewed. I went into the bladder with a 21 Indian rigid cystoscopy ureteroscopy after gentle dilation of the urethra. The urethra findings were normal. Inside the bladder the trigone was inspected left and right blake of the bladder and posterior and dome of the bladder was inspected and the main findings in the bladder was normal. I then cannulated the left ureter and used a wire to go up to the ureter then over the wire I performed balloon dilation of the distal ureter with a ureteral balloon dilator, the balloon dilator size was 12 Indian. I then left the wire in place and over the wire I went up with a ureteroscope. I was able to reach the stone successfully and then lasered the stone using a laser fiber and perform laser lithotripsy on the stone until the stone broke up into tiny fragments. After successful complete lasering of the stone and its fragments then I worked my way out of the ureter and over the wire I then loaded up a stent and advanced a stent up into the left kidney. A retrograde pyelogram was then performed looking at the contrast images to assist in placement of the stent next and confirmed the location of the kidney and the ureter I then pulled on the wire and the stent coiled in the kidney and bladder in good position. I then drained the bladder with the cystoscope the patient's anesthetic was reversed he will be given pain medicine antibiotics and instructions to call the office for an appointment to remove the stent. Patient's anesthetic is being reversed and is taken back to the PACU in stable condition. Type of Anesthesia:: General Drains: stent left side - Admit VTE Documentation VTE Present on Admission: No
[2019-09-08] MEDS: HYDROcodone Bitartrate/Apap 5/325 Tablet PO (14:20)
== END 2019-09-08 15:15 | disposition home or self-care (01) ==
LOC: SDC 10:41 → AC 10:42
PROVIDERS: Anesthesiology; Referring Provider Urology; Visit Provider Urology
PROC: 0TJ98ZZ Inspection of Ureter, Via Natural or Artificial Opening Endoscopic (ICD-10-PCS; CPT 52352; principal; 2019-09-08 12:30)
DX: N20.1 Calculus of ureter (principal)
CPT/HCPCS: 52356; 76000; 81025; J7120; C1769; C2617; J2405

== ENCOUNTER → 2019-10-27 09:09 | Outpatient (CLI) | payer OTHER, SELFPAY ==
[2019-09-08 10:55] VITALS: BMI 28.6
--- NOTE | 2019-10-27 09:14 | RAD_ITS ---
STUDY: X-RAY - ABDOMEN/PELVIS REASON FOR EXAM: Female, 29 years old. LEFT SIDE KIDNEY STONE CHECK UP, POST SURGERY TECHNIQUE: Single AP view of the abdomen / pelvis. COMPARISON: None. FINDINGS: There is an abundance of fecal material throughout the colon. The visualized liver, spleen and kidneys are grossly normal in size and morphology. Normal soft tissue structures. Normal visualized osseous structures. RAD/Abdomen Single View IMPRESSION: Large amount of fecal material is seen in the colon. Electronically Signed: Justyn Schuster, at 15:37 EDT , Service support ,
== END ==
PROVIDERS: Referring Provider Urology; Visit Provider Urology
DX: N20.1 Calculus of ureter (principal)
CPT/HCPCS: 74018

== ENCOUNTER → 2020-12-07 11:36 | Outpatient (CLI) | payer OTHER, SELFPAY ==
[2019-09-08 10:55] VITALS: BMI 28.6
[2020-12-12 14:23] LABS: HPV APTIMA, High Risk Negative (Negative)
== END ==
PROVIDERS: Visit Provider Obstetrics & Gynecology
DX: Z12.4 Encounter for screening for malignant neoplasm of cervix (principal)
CPT/HCPCS: 87624; 88175; G0145